=== PATIENT | male | born 1975 | race African-American/Black ===

== ENCOUNTER 2018-08-15 11:47 | Inpatient (IN) | payer OTHER ==
[2018-08-15 13:26] VITALS: BMI 28.1
--- NOTE | 2018-08-15 14:24 | HP ---
CIWA Score Nausea/Vomitin-Int. Nausea w/Dry Heave Muscle Tremors: 1-None Visible, but [employer] Anxiety: 4-Mod. Anxious/Guarded Agitation: 3 Paroxysmal Sweats: 1-Minimal Palms Moist Orientation: 0-Oriented Tacttile Disturbances: 0-None Auditory Disturbances: 0-None Visual Disturbances: 2-Mild Sensitivity Headache: 0-None Present CIWA-Ar Total Score: 15 - Admission Criteria OASAS Guidelines: Admission for Medically Managed Detox: Requires at least one of the followin. CIWA greater than 12 2. Seizures within the past 24 hours 3. Delirium tremens within the past 24 hours 4. Hallucinations within the past 24 hours 5. Acute intervention needed for co occurring medical disorder 6. Acute intervention needed for co occurring psychiatric disorder 7. Severe withdrawal that cannot be handled at a lower level of care (continued vomiting, continued diarrhea, abnormal vital signs) requiring intravenous medication and/or fluids 8. 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 denies other illicits , ETOH tobacco : 1/ ppd PMHX : HIV dx 1992 ( RF= ST ) goes to [facility] , reports compliance w/ meds Triumeq , PSHx : denies Psych : depression , suicide attempt x 2 , most recently june 2018 by swallowing " some pills, I slept it off " , March 2018 similar episode went to [facility] in [place] given meds Seroquel, Risperdal stopped taking April 2018 . SHx : lives alone , unemployed , SSD - Ebola screening Have you traveled outside of the country in the last 21 days: No Have you had contact with anyone from an Ebola affected area: No Have you been sick,other than usual withdrawal symptoms: No Do you have a fever: No - Review of Systems Constitutional: See HPI EENT: reports: Other (myopia , denies dysphagia) Respiratory: reports: No Symptoms reported Cardiac: reports: No Symptoms Reported GI: reports: See HPI, Diarrhea : reports: No Symptoms Reported Musculoskeletal: reports: No Symptoms Reported Integumentary: reports: No Symptoms Reported Neuro: reports: No Symptoms reported Endocrine: reports: No Symptoms Reported Psychiatric: reports: Orientated x3, Agitated, Anxious, Depressed Patient History - Smoking Cessation Smoking history: Current every day smoker Have you smoked in the past 12 months: Yes Aproximately how many cigarettes per day: 10 Hx Chewing Tobacco Use: No Initiated information on smoking cessation: No - Substances Abused Alcohol-vodka Route: Oral Frequency: Daily Amount used: 1 pt. Age of first use: 20 Date of Last Use: 08/13/18 Crystal meth Route: Smoking Frequency: Daily Amount used: $25 Age of first use: 35 Date of Last Use: 08/13/18 Family Disease History - Family Disease History Family History: Denies (states not close to family and does not know) Admission Physical Exam [facility] - Vital Signs Vital Signs: Vital Signs - 24 hr 08/15/18 13:24 Temperature 97.3 F L Pulse Rate 89 Respiratory 17 Rate Blood Pressure 112/74 - Physical General Appearance: Yes: Moderate Distress HEENTM: Yes: EOMI, Hearing grossly Normal, Normocephalic, Normal Voice Respiratory: Yes: Chest Non-Tender, Lungs Clear, Normal Breath Sounds Neck: Yes: No masses,lesions,Nodules, Trachea in good position Cardiology: Yes: Regular Rhythm, Regular Rate, S1, S2 Abdominal: Yes: Normal Bowel Sounds, Non Tender, Soft Genitourinary: Yes: Within Normal Limits Back: Yes: Normal Inspection Musculoskeletal: Yes: full range of Motion, Gait Steady Extremities: Yes: Normal Range of Motion, Non-Tender Neurological: Yes: Motor Strength 5/5 Integumentary: Yes: Normal Color - Diagnostic (1) Amphetamine abuse Current Visit: Yes Status: Acute (2) Tobacco dependence Current Visit: Yes Status: Chronic (3) History of attempted suicide Current Visit: Yes Status: Resolved [facility] Breath Alcohol Content Breath Alcohol Content: 0 Urine Drug Screen - Results Drug Screen Negative: No Urine Drug Screen Results: AMP-Amphetamines, MET-Methamphetamine, BZO- Benzodiazepines Inpatient Rehab Admission - Rehab Decision to Admit Inpatient rehab admission?: No
[2018-08-15] MEDS ORDERED: NICOTINE 7 MG/24 HOURS TOPICAL PATCH TD PRN (14:29)
[2018-08-15] MEDS ORDERED: IBUPROFEN 400 MG TABLET (FP) PO PRN (14:29)
[2018-08-15] MEDS ORDERED: MAGNESIUM HYDROX 2400MG/30ML ORAL SUSPENSION 30 ML CUP PO PRN (14:29)
[2018-08-15] MEDS ORDERED: MAGNESIUM CITRATE 300 ML BOTTLE PO PRN (14:29)
[2018-08-15] MEDS ORDERED: ACETAMINOPHEN 325 MG TABLET (FP) PO PRN (14:29)
[2018-08-15] MEDS ORDERED: MAG HYDROX/AL HYDROX/SIMETH 30 ML UNIT-DOSE CUP PO PRN (14:29)
[2018-08-15] MEDS ORDERED: NICOTINE POLACRILEX 2 MG GUM BC PRN (14:29)
[2018-08-15] MEDS ORDERED: MENTHOL/PHENOL 1 EACH UD MM PRN (14:29)
[2018-08-15] MEDS ORDERED: diazePAM 5 MG TABLET PO PRN (14:29)
[2018-08-15] MEDS: THIAMINE HCL 100 MG TABLET (FP) PO SCH (22:32)
[2018-08-15] MEDS: diazePAM 5 MG TABLET PO SCH (22:32)
[2018-08-16] MEDS: diazePAM 5 MG TABLET PO SCH ×3 (05:10→22:15)
--- NOTE | 2018-08-16 10:28 | CONSULT ---
[facility] Psychiatric Consult - Data Date of interview: 08/16/18 Admission source: [facility] Identifying data: Approached on three occasions, at bedside, for psychiatric interview. Patient declined. Nursing staff is made aware.
[2018-08-16 10:39] LABS: HEMATOCRIT 51.4 % (35.4-49); HEMOGLOBIN 17.4 GM/dL (11.7-16.9); MCH 30.7 pg (25.7-33.7); MCHC 33.9 g/dl (32.0-35.9); MEAN CELL VOLUME 90.6 fl (80-96); MEAN PLT VOLUME 8.4 fl (7.5-11.1); PLATELET COUNT 222 K/MM3 (134-434); RBC 5.67 M/mm3 (4.00-5.60); RDW 15.2 % (11.9-15.9); WHITE BLOOD COUNT 3.7 K/mm3 (4.0-10.0)
[2018-08-16] MEDS: PRENATAL VITAMINS W/ FOLIC ACID TABLET (FP) PO SCH (10:50)
[2018-08-16] MEDS: SIMETHICONE 80 MG TAB.CHEW (FP) PO PRN ×2 (10:50→19:29)
[2018-08-16 10:59] LABS: ALBUMIN 3.8 g/dl (3.4-5.0); ALK PHOS 96 U/L (45-117); ANION GAP 10 MMOL/L (8-16); BILIRUBIN,TOTAL 0.7 mg/dL (0.2-1); BLOOD UREA NITROGEN 8 mg/dL (7-18); CALCIUM 8.6 mg/dL (8.5-10.1); CHLORIDE 103 mmol/L (98-107); CO2 20 mmol/L (21-32); CREATININE 0.9 mg/dL (0.55-1.3); GLUCOSE,RANDOM 90 mg/dL (74-106); POTASSIUM 3.8 mmol/L (3.5-5.1); SGOT/AST 51 U/L (15-37); SGPT/ALT 61 U/L (13-61); SODIUM 134 mmol/L (136-145); TOT PROT 8.6 g/dl (6.4-8.2)
[2018-08-16 14:01] LABS: RPR REACTIVE 1:8 (NONREACTIVE)
--- NOTE | 2018-08-16 16:29 | PN ---
[facility] CIWA - CIWA Score Nausea/Vomitin-No Nausea/No Vomiting Muscle Tremors: 3 Anxiety: 4-Mod. Anxious/Guarded Agitation: 1-Slight > Activity Paroxysmal Sweats: 3 Orientation: 0-Oriented Tacttile Disturbances: 0-None Auditory Disturbances: 2-Mild Harshness/Frighten Visual Disturbances: 1-Very Mild Sensitivity Headache: 0-None Present CIWA-Ar Total Score: 14 S Progress Note (SOAP) Subjective: Stomach Cramping, Anxious, Interrupted Sleep, Diarrhea, Sweating, Tremors. Objective: PATIENT A & O X 3. IN NO ACUTE DISTRESS. 08/16/18 16:31 Vital Signs Temperature 96.4 F L 08/16/18 13:26 Pulse Rate 68 08/16/18 13:26 Respiratory Rate 18 08/16/18 13:26 Blood Pressure 100/66 08/16/18 13:26 O2 Sat by Pulse Oximetry (%) Laboratory Tests 08/16/18 08/16/18 08/16/18 07:00 07:00 07:00 WBC 3.7 L RBC 5.67 H Hgb 17.4 H Hct 51.4 H MCV 90.6 MCH 30.7 MCHC 33.9 RDW 15.2 Plt Count 222 MPV 8.4 Sodium 134 L Potassium 3.8 Chloride 103 Carbon Dioxide 20 L Anion Gap 10 BUN 8 Creatinine 0.9 Creat Clearance w eGFR > 60 Random Glucose 90 Calcium 8.6 Total Bilirubin 0.7 AST 51 H ALT 61 Alkaline Phosphatase 96 Total Protein 8.6 H Albumin 3.8 RPR Titer Reactive 1:8 H LABS NOTED. RPR RESULT NOTED. [facility] CONFIRMATORY RESULT PENDING. 08/16/18 16:41 Assessment: 08/16/18 16:31 WITHDRAWAL SYMPTOMS. Plan: CONTINUE DETOX. INCREASE DAILY PO FLUID INTAKE. PRN IMMODIUM FOR DIARRHEA.
[2018-08-16] MEDS: THIAMINE HCL 100 MG TABLET (FP) PO SCH (22:15)
[2018-08-16] MEDS: MELATONIN 5 MG TABLETS PO PRN (22:15)
--- NOTE | 2018-08-17 09:49 | PN ---
S CIWA - CIWA Score Nausea/Vomitin-Mild Nausea/No Vomiting Muscle Tremors: 4-Moderate,w/Arms Extend Anxiety: 3 Agitation: 2 Paroxysmal Sweats: 1-Minimal Palms Moist Orientation: 0-Oriented Tacttile Disturbances: 0-None Auditory Disturbances: 0-None Visual Disturbances: 0-None Headache: 1-Very Mild CIWA-Ar Total Score: 12 [facility] Progress Note (SOAP) Subjective: history of syphilis x 4 years ago treated with penicillin last treatment 2 years ago current level 1:8 patient dose not want to be treated with penicillin at this time mha pending Objective: 08/17/18 09:48 Vital Signs Temperature 97.3 F L 08/17/18 09:32 Pulse Rate 82 08/17/18 09:32 Respiratory Rate 20 08/17/18 09:32 Blood Pressure 105/76 08/17/18 09:32 O2 Sat by Pulse Oximetry (%) Laboratory Last Values WBC 3.7 K/mm3 (4.0-10.0) L 08/16/18 07:00 RBC 5.67 M/mm3 (4.00-5.60) H 08/16/18 07:00 Hgb 17.4 GM/dL (11.7-16.9) H 08/16/18 07:00 Hct 51.4 % (35.4-49) H 08/16/18 07:00 MCV 90.6 fl (80-96) 08/16/18 07:00 MCH 30.7 pg (25.7-33.7) 08/16/18 07:00 MCHC 33.9 g/dl (32.0-35.9) 08/16/18 07:00 RDW 15.2 % (11.9-15.9) 08/16/18 07:00 Plt Count 222 K/MM3 (134-434) 08/16/18 07:00 MPV 8.4 fl (7.5-11.1) 08/16/18 07:00 Sodium 134 mmol/L (136-145) L 08/16/18 07:00 Potassium 3.8 mmol/L (3.5-5.1) 08/16/18 07:00 Chloride 103 mmol/L (98-107) 08/16/18 07:00 Carbon Dioxide 20 mmol/L (21-32) L 08/16/18 07:00 Anion Gap 10 MMOL/L (8-16) 08/16/18 07:00 BUN 8 mg/dL (7-18) 08/16/18 07:00 Creatinine 0.9 mg/dL (0.55-1.3) 08/16/18 07:00 Creat Clearance w eGFR > 60 (>60) 08/16/18 07:00 Random Glucose 90 mg/dL (74-106) 08/16/18 07:00 Calcium 8.6 mg/dL (8.5-10.1) 08/16/18 07:00 Total Bilirubin 0.7 mg/dL (0.2-1) 08/16/18 07:00 AST 51 U/L (15-37) H 08/16/18 07:00 ALT 61 U/L (13-61) 08/16/18 07:00 Alkaline Phosphatase 96 U/L (45-117) 08/16/18 07:00 Total Protein 8.6 g/dl (6.4-8.2) H 08/16/18 07:00 Albumin 3.8 g/dl (3.4-5.0) 08/16/18 07:00 RPR Titer Reactive 1:8 (NONREACTIVE) H 08/16/18 07:00 lab noted Assessment: 08/17/18 09:49 withdrawal sx syphilis Plan: continue detox
[2018-08-17] MEDS: SIMETHICONE 80 MG TAB.CHEW (FP) PO PRN (10:22)
[2018-08-17] MEDS: PRENATAL VITAMINS W/ FOLIC ACID TABLET (FP) PO SCH (10:23)
[2018-08-17] MEDS: diazePAM 5 MG TABLET PO SCH ×2 (10:23→22:19)
[2018-08-17 11:41] LABS: TREPONEMA ANTIBODY REACTIVE (NONREACTIVE)
[2018-08-17] MEDS: MELATONIN 5 MG TABLETS PO PRN (22:18)
[2018-08-17] MEDS: THIAMINE HCL 100 MG TABLET (FP) PO SCH (22:19)
[2018-08-17] MEDS ORDERED: HYDROCORTISONE 2.5% TOPICAL CREAM 30 GM TUBE TP PRN (22:32)
[2018-08-18] MEDS: SIMETHICONE 80 MG TAB.CHEW (FP) PO PRN (02:09)
[2018-08-18] MEDS ORDERED: LOPERAMIDE HCL 2 MG CAPSULE PO PRN (02:14)
[2018-08-18] MEDS: PRENATAL VITAMINS W/ FOLIC ACID TABLET (FP) PO SCH (10:28)
[2018-08-18] MEDS: diazePAM 5 MG TABLET PO SCH ×2 (10:28→22:10)
[2018-08-18] MEDS ORDERED: DIPHENOXYLATE 2.5/ATROPINE.025 1 COMBO TABLET PO PRN (17:14)
--- NOTE | 2018-08-18 17:17 | PN ---
[facility] Progress Note (SOAP) Subjective: Interrupted sleep, Stomach Cramping, Diarrhea (Patient Reports Minimal Effect from Immodium). Objective: PATIENT A & O X 3, OBSERVED AMBULATING ON UNIT. IN NO ACUTE DISTRESS. 08/18/18 17:15 Vital Signs Temperature 97.8 F 08/18/18 13:34 Pulse Rate 81 08/18/18 13:34 Respiratory Rate 18 08/18/18 13:34 Blood Pressure 111/78 08/18/18 13:34 O2 Sat by Pulse Oximetry (%) Laboratory Tests 08/16/18 08/16/18 08/16/18 07:00 07:00 07:00 WBC 3.7 L RBC 5.67 H Hgb 17.4 H Hct 51.4 H MCV 90.6 MCH 30.7 MCHC 33.9 RDW 15.2 Plt Count 222 MPV 8.4 Sodium 134 L Potassium 3.8 Chloride 103 Carbon Dioxide 20 L Anion Gap 10 BUN 8 Creatinine 0.9 Creat Clearance w eGFR > 60 Random Glucose 90 Calcium 8.6 Total Bilirubin 0.7 AST 51 H ALT 61 Alkaline Phosphatase 96 Total Protein 8.6 H Albumin 3.8 RPR Titer Reactive 1:8 H T.pallidum Ab ([facility]HA) Reactive LABS NOTED. Assessment: 08/18/18 17:16 WITHDRAWAL SYMPTOMS. Plan: CONTINUE DETOX. INCREASE DAILY PO FLUID INTAKE. CHANGE FROM IMMODIUM PO TO LOMOTIL PO FOR DIARRHEA.
[2018-08-18] MEDS: THIAMINE HCL 100 MG TABLET (FP) PO SCH (22:08)
[2018-08-18] MEDS: MELATONIN 5 MG TABLETS PO PRN (22:09)
[2018-08-19 09:27] VITALS: BP 110/77; PULSE 62; TEMP 97.1
[2018-08-19] MEDS ORDERED: diazePAM 5 MG TABLET PO SCH (10:00)
[2018-08-19] MEDS: PRENATAL VITAMINS W/ FOLIC ACID TABLET (FP) PO SCH (10:11)
--- NOTE | 2018-08-19 16:29 | DS ---
[facility] Detox Discharge Summary Admission Date: 08/15/18 Discharge Date: 08/19/18 - History Present History: Sedative Dependence Additional Comments: PATIENT TO GO HOME FOR TIME BEING AND WILL THEN GO TO [facility] ([place], [place]) ON 08/24/2017 (NO REHAB BEDS AVAILABLE AT [facility] TODAY. PATIENT WAS DISCHARGED FROM DETOX UNIT IN STABLE MEDICAL CONDITION. Pertinent Past History: Tobacco Dependence, H.I.V., History of Depression. - Physical Exam Results Vital Signs: Vital Signs Temperature 97.1 F L 08/19/18 09:26 Pulse Rate 62 08/19/18 09:26 Respiratory Rate 18 08/19/18 09:26 Blood Pressure 110/77 08/19/18 09:26 O2 Sat by Pulse Oximetry (%) Pertinent Admission Physical Exam Findings: WITHDRAWAL SYMPTOMS. Laboratory Tests 08/16/18 08/16/18 08/16/18 07:00 07:00 07:00 WBC 3.7 L RBC 5.67 H Hgb 17.4 H Hct 51.4 H MCV 90.6 MCH 30.7 MCHC 33.9 RDW 15.2 Plt Count 222 MPV 8.4 Sodium 134 L Potassium 3.8 Chloride 103 Carbon Dioxide 20 L Anion Gap 10 BUN 8 Creatinine 0.9 Creat Clearance w eGFR > 60 Random Glucose 90 Calcium 8.6 Total Bilirubin 0.7 AST 51 H ALT 61 Alkaline Phosphatase 96 Total Protein 8.6 H Albumin 3.8 RPR Titer Reactive 1:8 H T.pallidum Ab (MHA) Reactive LABS NOTED. - Treatment Hospital Course: Detox Protocol Followed, Detoxed Safely, Responded well, Discharged Condition Good, Rehab Referral Accepted Patient has Accepted a Rehab Referral to: [facility] ([place], [place]). - Medication Discharge Medications: Ambulatory Orders Abacavir/Dolutegravir/Lamivudi [Triumeq (Non-Formulary)] 1 each PO DAILY Quetiapine Fumarate [Seroquel -] 300 mg PO HS 08/15/18 - Diagnosis (1) Amphetamine abuse Status: Acute (2) Tobacco dependence Status: Chronic (3) History of attempted suicide Status: Resolved - AMA Did Patient Leave Against Medical Advice: No
== END 2018-08-19 11:30 | disposition home or self-care (01) | DRG 776 ==
LOC: YASAS 11:47 → Y3N 16:29
PROVIDERS: ADMIT Surgery; ATTEND Surgery
PROC: HZ2ZZZZ Detoxification Services for Substance Abuse Treatment (ICD-10-PCS; principal; 2018-08-15)
DX: F15.23 Other stimulant dependence with withdrawal (principal); F17.210 Nicotine dependence, cigarettes, uncomplicated; A53.9 Syphilis, unspecified; Z21 Asymptomatic human immunodeficiency virus [HIV] infection status; Z91.5 Personal history of self-harm
CPT/HCPCS: 36415; 80053; 85027; 86593; 86780